=== PATIENT | female | born 1970 | race Caucasian/White ===

== ENCOUNTER → 2018-03-12 | Outpatient (CLI) | payer OTHER ==
[2015-05-31 23:20] VITALS: BP 129/78
[~2018-03-12] MED LIST: CYCL-331 PO
--- NOTE | 2018-03-12 15:15 | RAD ---
DATE: 03/12/2018 EXAM: DIGITAL DIAGNOSTIC BILATERAL, BREAST LEFT HISTORY: Breast lump COMPARISON: 02/07/2016 This study was interpreted with the benefit of Computerized Aided Detection (CAD). Breast Density: HETERO The breast parenchyma is heterogenously dense, which could reduce sensitivity of mammography. Breast parenchyma level C. FINDINGS: A BB was placed on the skin surface over the area of palpable concern at the 7-8 o'clock location on the left. No new or enlarging breast densities are seen. No solid mass is seen in the region of the BB. No suspicious microcalcifications are evident. Left breast ultrasound, 03/12/2018: A targeted ultrasound exam was performed in the area of palpable concern at the 7:00 location. Approximately 8 cm from the nipple there is an oval-shaped subcutaneous nodule measuring 2.4 x 1.1 x 1.4 cm. It is predominantly hyperechoic and mildly heterogeneous. No posterior acoustic enhancement or shadowing is evident. Correlation with the mammogram suggests that this is probably a lipoma. No other abnormality is seen in this region. IMPRESSION: 1. No mammographic evidence of malignancy in either breast. 2. A smooth echogenic subcutaneous mass is present at the 7:00 location in the left breast, most likely a lipoma. Clinical surveillance and sonographic follow-up in 6 months is suggested. BI-RADS CATEGORY: 3 PROBABLY BENIGN FINDING(S)-SHORT INTERVAL FOLLOW-UP SUGGESTED RECOMMENDED FOLLOW-UP: 6M 6 MONTH FOLLOW-UP PQRS compliance statement: Patient information was entered into a reminder system with a target due date for the next mammogram. Mammography is a sensitive method for finding small breast cancers, but it does not detect them all and is not a substitute for careful clinical examination. A negative mammogram does not negate a clinically suspicious finding and should not result in delay in biopsying a clinically suspicious abnormality. "Our facility is accredited by the [employer] Mammography [employer]."
== END | disposition home or self-care (01) ==
LOC: MAMMO 12:17
PROVIDERS: ATTEND Physician Assistant Medical
DX: N63.24 Unspecified lump in the left breast, lower inner quadrant (principal)
CPT/HCPCS: 76641; 77066